=== PATIENT | male | born 1995 | race Caucasian/White ===

== ENCOUNTER 2021-01-01 21:55 | Emergency (ER) | payer OTHER, SELFPAY ==
[2021-01-01 21:55] VITALS: BP 161/71; PULSE 84; RESP 15; TEMP 37; O2SAT 98; BMI 25.1
--- NOTE | 2021-01-01 22:11 | ED.GENADULT ---
HPI - General Adult <Jamie Perez DO - Last Filed: 01/03/21 02:27> General Chief complaint: Psychiatric Symptoms Stated complaint: suicidal ideation Time Seen by Provider: 01/01/21 21:57 Source: patient Mode of arrival: Ambulatory Limitations: no limitations History of Present Illness HPI narrative: Patient is a 25-year-old active duty [facility] [place] male. He is a member of [employer]. 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 Does have a history of depression. Is followed by his registered medical transcriptionist and [place] One month ago he was started on an antidepressant but I did result in some side effects that were not acceptable to him so 2 weeks ago was started on Prozac. He has been taking every day since then. His depression stems from a relationship issue. 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 He remained to his and has been raising this child with her. He states that 1 week ago she left him and took the child back home to another state. This incident has caused a worsening of his depression. Today he had a sudden and overwhelming thought of killing himself. He had a plan of [place]jumping [place]. He contacted the active duty crisis line who advised him to come into the emergency department for evaluation. He did arrive by private vehicle. He denies any drug or alcohol use. Has never been admitted to the hospital before secondary to psychiatric issues. Related Data Allergies Allergy/AdvReac Type Severity Reaction Status Date / Time No Known Drug Allergies Allergy Verified 01/01/21 22:41 Review of Systems <Jamie Perez DO - Last Filed: 01/03/21 02:27> Constitutional Constitutional: Denies headache(s) ENT Ears, Nose, Mouth, and Throat: Denies headache(s) Cardiovascular Cardiovascular: Denies chest pain and Denies dyspnea Respiratory Respiratory: Denies dyspnea Gastrointestinal Gastrointestinal: Denies abdominal pain Neurologic Neurologic: Denies headache(s) Psychiatric Psychiatric: Reports depression and Reports suicidal ideation Hematologic/Lymphatic On Anticoagulants: No Patient History <Jamie Perez DO - Last Filed: 01/03/21 02:27> Medical History Depression Social History (Reviewed 01/02/21 @ 03:09 by RUDY Silvestre Smoking Status: Never smoker Exam <DO Gume Silvestre Last Filed: 01/03/21 02:27> Initial Vital Signs Initial Vital Signs: Vital Signs Temperature 98.6 F 01/01/21 21:55 Pulse Rate 84 01/01/21 21:55 Respiratory Rate 15 01/01/21 21:55 Blood Pressure 161/71 H 01/01/21 21:55 Pulse Oximetry 98 01/01/21 21:55 Const General: cooperative, comfortable and well developed Limitations: mental status not altered HENNJ Head: normal to inspection and normocephalic Resp Effort & Inspection: normal respiratory effort Cardio Rate: regular rate GI Inspection: non-distended Skin Lesions: no lesions Rashes: no rashes Neuro General: patient alert and patient awake Cognition: normal cognition Speech: speech normal Extrem General: capillary refill normal Psych Appearance: grossly normal and well kempt <DO Gume Castillo Last Filed: 01/03/21 19:07> Initial Vital Signs Initial Vital Signs: Vital Signs Temperature 98.6 F 01/01/21 21:55 Pulse Rate 84 01/01/21 21:55 Respiratory Rate 15 01/01/21 21:55 Blood Pressure 161/71 H 01/01/21 21:55 Pulse Oximetry 98 01/01/21 21:55 Scores <DO Gume Silvestre Filed: 01/03/21 02:27> GCS Ora coma scale eye opening: Spontaneous Kamlesh coma scale verbal response: Orientated Kamlesh coma scale motor response: Obey commands Kamlesh coma scale total score: 15 Course <DO Gume Silvestre Filed: 01/03/21 02:27> Orders Ordered: ED Orders 01/03/21 12:22 EKG-12 Lead Stat 01/03/21 12:27 Magnesium Stat Discontinued Medications Fluoxetine HCl (Fluoxetine 20 Mg Capsule) 40 mg PO DAILY [facility] Last Admin: 01/03/21 09:49 Dose: 40 mg Documented by: Admin: 01/02/21 08:20 Dose: 40 mg Documented by: CHAD Vital Signs Vital signs: Vital Signs - 8 hr 01/03/21 12:44 Pulse Rate 64 Blood Pressure 120/79 Pulse Oximetry 97 <DO Gume Castillo Last Filed: 01/03/21 19:07> Course Course Narrative: Patient received in sign-out from other provider at the end of their shift. I have performed an independent history and physical and have no significant additional findings. INSTITUTE SCIENTIST has seen patient, [facility] has openings tomorrow patient has been in a good mood today, he is doing well, a bit upset that there is no bed at [facility]. INSTITUTE SCIENTIST has done significant work and has found an available bed at [facility] Orders Ordered: ED Orders 01/03/21 12:22 EKG-12 Lead Stat 01/03/21 12:27 Magnesium Stat Discontinued Medications Fluoxetine HCl (Fluoxetine 20 Mg Capsule) 40 mg PO DAILY [facility] Last Admin: 01/03/21 09:49 Dose: 40 mg Documented by: Admin: 01/02/21 08:20 Dose: 40 mg Documented by: CHAD Vital Signs Vital signs: Vital Signs - 8 hr 01/03/21 12:44 Pulse Rate 64 Blood Pressure 120/79 Pulse Oximetry 97 Medical Decision Making <Jamie Perez DO - Last Filed: 01/03/21 02:27> Lab Data Lab results reviewed: Yes I reviewed the patient's lab results. Result diagrams: 01/01/21 22:25 01/01/21 22:25 Labs: Lab Results 01/01/21 01/01/21 01/01/21 Range/Units 22:25 22:25 22:25 WBC 8.5 (4.5-11.0) X10^3/uL RBC 4.63 (4.5-5.9) X10^6/uL Hgb 14.0 (13.5-17.5) g/dL Hct 41.1 (41-53) % MCV 88.8 (80-100) fL MCH 30.2 (26-34) PG MCHC 34.0 (30-36) % RDW 13.0 (11.6-14.8) % Plt Count 217 (150-400) X10^3/uL Neut % (Auto) 50.2 (50-75) % Lymph % (Auto) 36.4 (25-40) % [place] % (Auto) 7.4 (3-14) % Eos % (Auto) 4.9 H (2-4) % Baso % (Auto) 1.1 (0-2) % Neut # (Auto) 4300 (5279-8413) /uL Lymph # (Auto) 3100 (5873-6518) /uL [place] # (Auto) 600 (0-900) /uL Eos # (Auto) 400 (0-450) /uL Baso # (Auto) 100 (0-100) /uL Sodium 139 (137-145) mmol/L Potassium 3.6 (3.4-5.1) mmol/L Chloride 105 (98-107) mmol/L Carbon Dioxide 27 (22-32) mmol/L BUN 19 (9-20) mg/dL Creatinine 1.00 (0.66-1.25) mg/dL Estimated GFR > 60.0 (>60) mL/min BUN/Creatinine Ratio 19.0 (6-22) Glucose 113 H (70-100) mg/dL Calcium 9.5 (8.4-10.2) mg/dL Magnesium (1.6-2.3) mg/dL Total Bilirubin 0.2 (0.2-1.3) mg/dL AST 24 (17-59) IU/L ALT 18 (<50) IU/L Alkaline Phosphatase 69 (38-126) U/L Total Protein 7.4 (6.3-8.2) g/dL Albumin 4.4 (3.5-5.0) g/dL Globulin 3.0 (1.7-4.1) g/dL Albumin/Globulin Ratio 1.5 (1.0-2.8) TSH 1.89 (0.47-4.68) uIU/mL Salicylates (<20) mg/dL U Opiates 300ng/mL cut (Negative) Ur Oxycodone Screen (Negative) Urine Methadone Screen (Negative) Acetaminophen < 10 L (10-30) ug/mL Ur Barbiturates Screen (Negative) U Tricyclic Antidepress (Negative) Ur Phencyclidine Scrn (Negative) Ur Amphetamines Screen (Negative) U Methamphetamines Scrn (Negative) Ur MDMA Scrn (Ecstasy) (Negative) U Benzodiazepines Scrn (Negative) Urine Cocaine Screen (Negative) U Marijuana (THC) Screen (Negative) Ethyl Alcohol ( - 10) mg/dL SARS-CoV-2 (PCR) (Negative) 01/01/21 01/01/21 01/01/21 Range/Units 22:25 22:35 22:37 WBC (4.5-11.0) X10^3/uL RBC (4.5-5.9) X10^6/uL Hgb (13.5-17.5) g/dL Hct (41-53) % MCV (80-100) fL MCH (26-34) PG MCHC (30-36) % RDW (11.6-14.8) % Plt Count (150-400) X10^3/uL Neut % (Auto) (50-75) % Lymph % (Auto) (25-40) % [place] % (Auto) (3-14) % Eos % (Auto) (2-4) % Baso % (Auto) (0-2) % Neut # (Auto) (2788-4243) /uL Lymph # (Auto) (5960-5121) /uL [place] # (Auto) (0-900) /uL Eos # (Auto) (0-450) /uL Baso # (Auto) (0-100) /uL Sodium (137-145) mmol/L Potassium (3.4-5.1) mmol/L Chloride (98-107) mmol/L Carbon Dioxide (22-32) mmol/L BUN (9-20) mg/dL Creatinine (0.66-1.25) mg/dL Estimated GFR (>60) mL/min BUN/Creatinine Ratio (6-22) Glucose (70-100) mg/dL Calcium (8.4-10.2) mg/dL Magnesium (1.6-2.3) mg/dL Total Bilirubin (0.2-1.3) mg/dL AST (17-59) IU/L ALT (<50) IU/L Alkaline Phosphatase (38-126) U/L Total Protein (6.3-8.2) g/dL Albumin (3.5-5.0) g/dL Globulin (1.7-4.1) g/dL Albumin/Globulin Ratio (1.0-2.8) TSH (0.47-4.68) uIU/mL Salicylates < 1.0 (<20) mg/dL U Opiates 300ng/mL cut Negative (Negative) Ur Oxycodone Screen Negative (Negative) Urine Methadone Screen Negative (Negative) Acetaminophen (10-30) ug/mL Ur Barbiturates Screen Negative (Negative) U Tricyclic Antidepress Negative (Negative) Ur Phencyclidine Scrn Negative (Negative) Ur Amphetamines Screen Negative (Negative) U Methamphetamines Scrn Negative (Negative) Ur MDMA Scrn (Ecstasy) Negative (Negative) U Benzodiazepines Scrn Negative (Negative) Urine Cocaine Screen Negative (Negative) U Marijuana (THC) Screen Negative (Negative) Ethyl Alcohol < 10 ( - 10) mg/dL SARS-CoV-2 (PCR) Negative (Negative) 01/03/21 Range/Units 12:27 WBC (4.5-11.0) X10^3/uL RBC (4.5-5.9) X10^6/uL Hgb (13.5-17.5) g/dL Hct (41-53) % MCV (80-100) fL MCH (26-34) PG MCHC (30-36) % RDW (11.6-14.8) % Plt Count (150-400) X10^3/uL Neut % (Auto) (50-75) % Lymph % (Auto) (25-40) % [place] % (Auto) (3-14) % Eos % (Auto) (2-4) % Baso % (Auto) (0-2) % Neut # (Auto) (9869-7993) /uL Lymph # (Auto) (8420-7605) /uL [place] # (Auto) (0-900) /uL Eos # (Auto) (0-450) /uL Baso # (Auto) (0-100) /uL Sodium (137-145) mmol/L Potassium (3.4-5.1) mmol/L Chloride (98-107) mmol/L Carbon Dioxide (22-32) mmol/L BUN (9-20) mg/dL Creatinine (0.66-1.25) mg/dL Estimated GFR (>60) mL/min BUN/Creatinine Ratio (6-22) Glucose (70-100) mg/dL Calcium (8.4-10.2) mg/dL Magnesium 2.0 (1.6-2.3) mg/dL Total Bilirubin (0.2-1.3) mg/dL AST (17-59) IU/L ALT (<50) IU/L Alkaline Phosphatase (38-126) U/L Total Protein (6.3-8.2) g/dL Albumin (3.5-5.0) g/dL Globulin (1.7-4.1) g/dL Albumin/Globulin Ratio (1.0-2.8) TSH (0.47-4.68) uIU/mL Salicylates (<20) mg/dL U Opiates 300ng/mL cut (Negative) Ur Oxycodone Screen (Negative) Urine Methadone Screen (Negative) Acetaminophen (10-30) ug/mL Ur Barbiturates Screen (Negative) U Tricyclic Antidepress (Negative) Ur Phencyclidine Scrn (Negative) Ur Amphetamines Screen (Negative) U Methamphetamines Scrn (Negative) Ur MDMA Scrn (Ecstasy) (Negative) U Benzodiazepines Scrn (Negative) Urine Cocaine Screen (Negative) U Marijuana (THC) Screen (Negative) Ethyl Alcohol ( - 10) mg/dL SARS-CoV-2 (PCR) (Negative) Urine Dip Bedside Urine Glucose Negative Bedside Urine Bilirubin - Negative Bedside Urine Ketone - Negative Urine Specific Wall 1.030 Bedside Urine Occult Blood - Negative Bedside Urine pH 6.0 Bedside Urine Protein - Negative Bedside Urine Urobilinogen - Negative Bedside Urine Nitrite - Negative Bedside Urine Leukocytes - Negative Esterase Point of care testing: Urine Dip Bedside Urine Glucose Negative Bedside Urine Bilirubin - Negative Bedside Urine Ketone - Negative Urine Specific Wall 1.030 Bedside Urine Occult Blood - Negative Bedside Urine pH 6.0 Bedside Urine Protein - Negative Bedside Urine Urobilinogen - Negative Bedside Urine Nitrite - Negative Bedside Urine Leukocytes - Negative Esterase MDM Narrative Medical decision making narrative: Patient has been battling depression for the past several weeks/months and did have a recent change in his medication for this. One week ago things worsened within his left him. He had a sudden overwhelming suicidal ideation earlier today with a fairly specific plan [place]. He contacted the crisis line on his own and did come to the emergency department on his own. He has no signs of intoxication. He is here voluntarily. Has been calm and cooperative during his stay. During his time here in the emergency department he stated that he is feeling somewhat better and does not have the overwhelming desire to kill himself however the fact that the thoughts came so suddenly earlier today and he had intense desire to kill himself made him very concerned and scared about being home alone. 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 Patient opted to stay in the emergency department this evening. He is medically cleared and we will re-engage in the morning to attempt to find placement. Patient is agreeable with this plan. Care turned over to day provider to follow up and disposition. 01/03/21: Assumed care of patient and reviewed notes from the past day. Patient continues to remain stable and medically cleared. Will re-attempt placement today at [facility]. <Bhaskar Wen, DO - Last Filed: 01/03/21 19:07> Lab Data Labs: Lab Results 01/01/21 01/01/21 01/01/21 Range/Units 22:25 22:25 22:25 WBC 8.5 (4.5-11.0) X10^3/uL RBC 4.63 (4.5-5.9) X10^6/uL Hgb 14.0 (13.5-17.5) g/dL Hct 41.1 (41-53) % MCV 88.8 (80-100) fL MCH 30.2 (26-34) PG MCHC 34.0 (30-36) % RDW 13.0 (11.6-14.8) % Plt Count 217 (150-400) X10^3/uL Neut % (Auto) 50.2 (50-75) % Lymph % (Auto) 36.4 (25-40) % [place] % (Auto) 7.4 (3-14) % Eos % (Auto) 4.9 H (2-4) % Baso % (Auto) 1.1 (0-2) % Neut # (Auto) 4300 (4359-8931) /uL Lymph # (Auto) 3100 (3260-0105) /uL [place] # (Auto) 600 (0-900) /uL Eos # (Auto) 400 (0-450) /uL Baso # (Auto) 100 (0-100) /uL Sodium 139 (137-145) mmol/L Potassium 3.6 (3.4-5.1) mmol/L Chloride 105 (98-107) mmol/L Carbon Dioxide 27 (22-32) mmol/L BUN 19 (9-20) mg/dL Creatinine 1.00 (0.66-1.25) mg/dL Estimated GFR > 60.0 (>60) mL/min BUN/Creatinine Ratio 19.0 (6-22) Glucose 113 H (70-100) mg/dL Calcium 9.5 (8.4-10.2) mg/dL Magnesium (1.6-2.3) mg/dL Total Bilirubin 0.2 (0.2-1.3) mg/dL AST 24 (17-59) IU/L ALT 18 (<50) IU/L Alkaline Phosphatase 69 (38-126) U/L Total Protein 7.4 (6.3-8.2) g/dL Albumin 4.4 (3.5-5.0) g/dL Globulin 3.0 (1.7-4.1) g/dL Albumin/Globulin Ratio 1.5 (1.0-2.8) TSH 1.89 (0.47-4.68) uIU/mL Salicylates (<20) mg/dL U Opiates 300ng/mL cut (Negative) Ur Oxycodone Screen (Negative) Urine Methadone Screen (Negative) Acetaminophen < 10 L (10-30) ug/mL Ur Barbiturates Screen (Negative) U Tricyclic Antidepress (Negative) Ur Phencyclidine Scrn (Negative) Ur Amphetamines Screen (Negative) U Methamphetamines Scrn (Negative) Ur MDMA Scrn (Ecstasy) (Negative) U Benzodiazepines Scrn (Negative) Urine Cocaine Screen (Negative) U Marijuana (THC) Screen (Negative) Ethyl Alcohol ( - 10) mg/dL SARS-CoV-2 (PCR) (Negative) 01/01/21 01/01/21 01/01/21 Range/Units 22:25 22:35 22:37 WBC (4.5-11.0) X10^3/uL RBC (4.5-5.9) X10^6/uL Hgb (13.5-17.5) g/dL Hct (41-53) % MCV (80-100) fL MCH (26-34) PG MCHC (30-36) % RDW (11.6-14.8) % Plt Count (150-400) X10^3/uL Neut % (Auto) (50-75) % Lymph % (Auto) (25-40) % [place] % (Auto) (3-14) % Eos % (Auto) (2-4) % Baso % (Auto) (0-2) % Neut # (Auto) (8304-2652) /uL Lymph # (Auto) (3745-0182) /uL [place] # (Auto) (0-900) /uL Eos # (Auto) (0-450) /uL Baso # (Auto) (0-100) /uL Sodium (137-145) mmol/L Potassium (3.4-5.1) mmol/L Chloride (98-107) mmol/L Carbon Dioxide (22-32) mmol/L BUN (9-20) mg/dL Creatinine (0.66-1.25) mg/dL Estimated GFR (>60) mL/min BUN/Creatinine Ratio (6-22) Glucose (70-100) mg/dL Calcium (8.4-10.2) mg/dL Magnesium (1.6-2.3) mg/dL Total Bilirubin (0.2-1.3) mg/dL AST (17-59) IU/L ALT (<50) IU/L Alkaline Phosphatase (38-126) U/L Total Protein (6.3-8.2) g/dL Albumin (3.5-5.0) g/dL Globulin (1.7-4.1) g/dL Albumin/Globulin Ratio (1.0-2.8) TSH (0.47-4.68) uIU/mL Salicylates < 1.0 (<20) mg/dL U Opiates 300ng/mL cut Negative (Negative) Ur Oxycodone Screen Negative (Negative) Urine Methadone Screen Negative (Negative) Acetaminophen (10-30) ug/mL Ur Barbiturates Screen Negative (Negative) U Tricyclic Antidepress Negative (Negative) Ur Phencyclidine Scrn Negative (Negative) Ur Amphetamines Screen Negative (Negative) U Methamphetamines Scrn Negative (Negative) Ur MDMA Scrn (Ecstasy) Negative (Negative) U Benzodiazepines Scrn Negative (Negative) Urine Cocaine Screen Negative (Negative) U Marijuana (THC) Screen Negative (Negative) Ethyl Alcohol < 10 ( - 10) mg/dL SARS-CoV-2 (PCR) Negative (Negative) 01/03/21 Range/Units 12:27 WBC (4.5-11.0) X10^3/uL RBC (4.5-5.9) X10^6/uL Hgb (13.5-17.5) g/dL Hct (41-53) % MCV (80-100) fL MCH (26-34) PG MCHC (30-36) % RDW (11.6-14.8) % Plt Count (150-400) X10^3/uL Neut % (Auto) (50-75) % Lymph % (Auto) (25-40) % [place] % (Auto) (3-14) % Eos % (Auto) (2-4) % Baso % (Auto) (0-2) % Neut # (Auto) (5086-4574) /uL Lymph # (Auto) (5445-3803) /uL [place] # (Auto) (0-900) /uL Eos # (Auto) (0-450) /uL Baso # (Auto) (0-100) /uL Sodium (137-145) mmol/L Potassium (3.4-5.1) mmol/L Chloride (98-107) mmol/L Carbon Dioxide (22-32) mmol/L BUN (9-20) mg/dL Creatinine (0.66-1.25) mg/dL Estimated GFR (>60) mL/min BUN/Creatinine Ratio (6-22) Glucose (70-100) mg/dL Calcium (8.4-10.2) mg/dL Magnesium 2.0 (1.6-2.3) mg/dL Total Bilirubin (0.2-1.3) mg/dL AST (17-59) IU/L ALT (<50) IU/L Alkaline Phosphatase (38-126) U/L Total Protein (6.3-8.2) g/dL Albumin (3.5-5.0) g/dL Globulin (1.7-4.1) g/dL Albumin/Globulin Ratio (1.0-2.8) TSH (0.47-4.68) uIU/mL Salicylates (<20) mg/dL U Opiates 300ng/mL cut (Negative) Ur Oxycodone Screen (Negative) Urine Methadone Screen (Negative) Acetaminophen (10-30) ug/mL Ur Barbiturates Screen (Negative) U Tricyclic Antidepress (Negative) Ur Phencyclidine Scrn (Negative) Ur Amphetamines Screen (Negative) U Methamphetamines Scrn (Negative) Ur MDMA Scrn (Ecstasy) (Negative) U Benzodiazepines Scrn (Negative) Urine Cocaine Screen (Negative) U Marijuana (THC) Screen (Negative) Ethyl Alcohol ( - 10) mg/dL SARS-CoV-2 (PCR) (Negative) Urine Dip Bedside Urine Glucose Negative Bedside Urine Bilirubin - Negative Bedside Urine Ketone - Negative Urine Specific Wall 1.030 Bedside Urine Occult Blood - Negative Bedside Urine pH 6.0 Bedside Urine Protein - Negative Bedside Urine Urobilinogen - Negative Bedside Urine Nitrite - Negative Bedside Urine Leukocytes - Negative Esterase Point of care testing: Urine Dip Bedside Urine Glucose Negative Bedside Urine Bilirubin - Negative Bedside Urine Ketone - Negative Urine Specific Wall 1.030 Bedside Urine Occult Blood - Negative Bedside Urine pH 6.0 Bedside Urine Protein - Negative Bedside Urine Urobilinogen - Negative Bedside Urine Nitrite - Negative Bedside Urine Leukocytes - Negative Esterase Discharge Plan Departure Patient Disposition: Xfer Psychiatric Hosp Clinical Impression: Suicidal ideation, Depression
[2021-01-01 22:35] LABS: Add Manual Diff / Slide Review NO; Basophils Absolute Auto 100 /uL (0-100); Basophils Percent Auto 1.1 % (0-2); Eosinophils Absolute Auto 400 /uL (0-450); Eosinophils Percent Auto 4.9 % (2-4); Hematocrit 41.1 % (41-53); Lymphocytes Absolute Auto 3100 /uL (1100-4500); Lymphocytes Percent Auto 36.4 % (25-40); Mean Corpuscular Hemoglobin 30.2 PG (26-34); Mean Corpuscular Volume 88.8 fL (80-100); Monocytes Absolute Auto 600 /uL (0-900); Monocytes Percent Auto 7.4 % (3-14); Neutrophils Absolute Auto 4300 /uL (1500-7000); Neutrophils Percent Auto 50.2 % (50-75); Platelet Count 217 X10^3/uL (150-400); Red Blood Cell Count 4.63 X10^6/uL (4.5-5.9); White Blood Cell Count 8.5 X10^3/uL (4.5-11.0)
[2021-01-01 22:44] LABS: Ethanol (ETOH) < 10 mg/dL; Salicylate < 1.0 mg/dL (<20)
[2021-01-01 22:45] LABS: Acetaminophen < 10 ug/mL (10-30); Alanine Aminotransferase 18 IU/L (<50); Albumin 4.4 g/dL (3.5-5.0); Albumin Globulin Ratio 1.5 (1.0-2.8); Alkaline Phosphatase 69 U/L (38-126); Aspartate Aminotransferase 24 IU/L (17-59); Bilirubin Total 0.2 mg/dL (0.2-1.3); Blood Urea Nitrogen 19 mg/dL (9-20); Calcium 9.5 mg/dL (8.4-10.2); Carbon Dioxide 27 mmol/L (22-32); Chloride 105 mmol/L (98-107); Estimated Glomerular Filt Rate > 60.0 mL/min (>60); Glucose 113 mg/dL (70-100); HEMOLYSIS < 15 (0-50); Potassium 3.6 mmol/L (3.4-5.1); Sodium 139 mmol/L (137-145); Total Protein 7.4 g/dL (6.3-8.2)
[2021-01-01 23:04] LABS: UR Morphine/Opiate cutoff 300 Negative (Negative); Ur Creatinine Normal (Normal); Ur Specific Gravity Normal (Normal); Urine Amphetamines Negative (Negative); Urine Barbiturates Negative (Negative); Urine Benzodiazepines Negative (Negative); Urine Cocaine Negative (Negative); Urine MDMA Negative (Negative); Urine Methadone Negative (Negative); Urine Methamphetamines Negative (Negative); Urine Oxycodone Negative (Negative); Urine Phencyclidine Negative (Negative); Urine Tetrahydrocannabinol Negative (Negative); Urine Tricyclic Antidepressant Negative (Negative); Urine pH Normal (Normal)
[2021-01-01 23:18] LABS: COVID19 -Nasal RAPID Negative (Negative)
[2021-01-01 23:30] LABS: Thyroid Stimulating Hormone 1.89 uIU/mL (0.47-4.68)
[2021-01-02 06:28] VITALS: BP 128/64; PULSE 53; RESP 16; O2SAT 98
[2021-01-02] MEDS: FLUoxetine 20 MG CAPSULE 40 MG PO (08:20)
[2021-01-02 12:00] VITALS: BP 136/76; PULSE 65; RESP 16; TEMP 36.6; O2SAT 96
--- NOTE | 2021-01-02 12:46 | PC.NURSE ---
Pt's lizette Parmar here to see pt. Pt okayed visit
--- NOTE | 2021-01-02 13:32 | CM.SWNOTE ---
CDA TEACHER Assessment CDA TEACHER - Negative Assembler Assessment Time Spent with Patient Start date 01/02/21 Visit Start Time 12:05 End date 01/02/21 Visit End Time 12:30 Total time Care Management spent on 25 patient visit-in minutes Mental Health Screening Include Onset, Duration, Intensity Presenting Problem Patient presents to this ED with thoughts of suicidal Ideation. Patient calls crisis line and was advised to come to ED. Precipitating Event(s) Patient states that his cheated on him, had a baby that is not his and and baby left him last week. Patient states he has been alone in his thoughts this week. Patient Strengths Patient shows insight. Current Behavioral Health Provider(s) Patient reports he sees Dr. Truong Facility, Provider, Ph. # [facility] [place]. (CDA TEACHER cannot find Dr. Magana but identifies Ph. # [phone] for [facility] clinic in [place]. Psych. Hx Mental Health and Chemical Patient states he has been Dependency struggling with depression and was previously prescribed Lexapro but had adverse affects and was prescribed 40mg of Prozac two weeks ago. Family Hx of Behavioral Abuse None reported. Psychiatric Hospitalizations (date(s)/ Patient denies any previous location) hospital stays. 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 Patient states his and baby left him this week and he currently lives alone. Patient states that his coworkers and friends are supportive. School/Work [employer] Concerns Legal Matters - Outstanding Issues None reported. Mental Status Orientation (Person/Place/Time) A/Ox4 Stated Mood better than last night Affect (Congruent with Mood?) Euthymic, full range, stable, congruent with mood. Thought Content - Specify/Describe Patient denies obsessions, Obsessions, Delusions, Hallucinations delusions and hallucinations Thought Processes (Suyegof-Fydjdmwr-Lztk Coherent/ logical Gklpulop-Smjkxzbg-Ygwfsctxud- Jxvlaxoulvztdy-Ybyvtrp-Whcnjvbyzlkf- Thought Blocking) Speech (Ebmfjt-Onby-Ishdbih-Rapid-Soft- Normal Loud-Pressured) Motor (Mppdmc-Xtgwwvpmb-Kxxi-Other) Normal, not formally assessed Insight (Sjxv-Ovue-Dhgu/Limited) Good Judgement (Pdcq-Qxvo-Lxqk/Limited) Good Impulse Control (Adequate-Impaired) Adequate during interview Memory (Suqgylttt-Msgjqk-Ltkdtj, Adequate during interview, not Impaired-Intact) formally assessed Concentration (Intact-Impaired) Adequate Attention (Intact-Impaired) Intact Behavior (Appropriate-Inappropriate) Appropriate Additional Comment Patient was open and communicative. Risk Assessment Suicidal Ideation (Plan) Yes Homicidal Ideation (Plan) No Comment Patient denies HI. Patient states all day yesterday he thought of going to [place] and jumping [place]. Patient states this is the first time he has had SI with ways and means plan. Patient states he calls Crisis Line and comes to this ED. Patient states it was scary to have those thoughts of killing self and jumping off bridge. Patient states he was ready to go last night in reference to ready to go jump off the bridge. Intervention Intervention CDA TEACHER meets with patient. Patient informs CDA TEACHER of his feelings of SI and events that led up to these thoughts. Patient states that he has been along stuck in my own thoughts for the last week. Patient states that he has had a rough marriage and he his when he was based in [facility] and spent the first year of marriage a part and reports his cheated on him and became . Patient states that he was unsure if the child was his and it was later determined he was not the biological father . Patient states that his left him last week and his depressive thoughts increased while he lives alone. Patient states he has been not in a great place mentally for a long time. 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 CDA TEACHER discusses [facility] and psychiatric inpatient. Patient indicates understanding and agreement and reports that ED provider Dr. Perez informed him about this hospital last evening. It is the opinion of this CDA TEACHER that patient will benefit from inpatient psychiatric hospitalization. CDA TEACHER discusses the above with ED provider Dr. Wen and he indicates understanding and agreement. Plan RA Plan Patient to transfer to [facility] for psychiatric inpatient when they have beds available on . MADAI Bucio
--- NOTE | 2021-01-02 13:34 | CM.SWNOTE ---
PULLING MACHINE OPERATOR Note PULLING MACHINE OPERATOR calls [facility] (Ph. # [phone]). It is reported that hospital with have open beds for patient on Sunday01/03/21. PULLING MACHINE OPERATOR to fax clinicals regarding referral for voluntary inpatient later today. PULLING MACHINE OPERATOR informs the above to patient and he indicates agreement and understanding and wanting to wait for inpatient bed. plan: PULLING MACHINE OPERATOR to follow with faxing clinicals to [facility] for voluntary inpatient hospitalization MADAI Bucio
[2021-01-02 18:00] VITALS: BP 138/79; PULSE 72; RESP 16; TEMP 36.5; O2SAT 98
[2021-01-03 07:16] VITALS: BP 138/68; PULSE 55; RESP 16; O2SAT 96
[2021-01-03] MEDS: FLUoxetine 20 MG CAPSULE 40 MG PO (09:49)
--- NOTE | 2021-01-03 10:58 | PC.NURSE ---
pt denies wanting to act on suicidal thoughts from 2 days ago.
--- NOTE | 2021-01-03 12:26 | CM.SWNOTE ---
Addendum entered by Sharita Novoa 01/03/21 14:32: Patient provides BAKERY TEAM LEADER with verbal consent to contact psychiatrist Dr. Magana to inform them of patient present in this ED and transfer to inpatient, patient indicates understanding. BAKERY TEAM LEADER leaves with psychiatrist Dr. Magana at [facility] (Ph. # [phone]) requesting return call. MADAI Bucio Addendum entered by Sharita Novoa 01/03/21 14:02: BAKERY TEAM LEADER speaks with Charge nurse Li at [facility], BAKERY TEAM LEADER faxes clinicals for [facility] review. BAKERY TEAM LEADER receives call from Christiano at [facility], and accepts patient for inpatient psychiatric hospitalization with eta of 1600. BAKERY TEAM LEADER calls [facility] and provides update that bed is no longer needed. BAKERY TEAM LEADER informs RAMY Diop to schedule EMS transport. Plan: patient to xfer to [facility] for inpatient psychiatric hospitalization. MADAI Bucio Original Note: BAKERY TEAM LEADER Note BAKERY TEAM LEADER arrives at 1200 and is informed by RNs that [facility] does not have opening today and it is unknown when hospital will have inpatient openings. BAKERY TEAM LEADER enters room and meets with patient and provides update. Patient states he is still seeking voluntary inpatient and indicates understanding and agreement that BAKERY TEAM LEADER is to call other hospitals for inpatient bed openings. BAKERY TEAM LEADER calls [facility], it is reported that they may have openings but could not review clinicals until this evening with an ETA of 2200 or tomorrow. BAKERY TEAM LEADER calls [facility] intake and leaves requesting return call regarding inpatient bed openings. BAKERY TEAM LEADER calls [facility] intake, it is reported that this hospital has beds avaialble today. Intake requests clinicals with EKG and magnesium levels. BAKERY TEAM LEADER informs charge nurse TAZ Mayorga requests these orders. BAKERY TEAM LEADER informs patient and he indicates agreement and understanding. Plan: xfer to inpatient for psychiatric hospitalization, pending opening at [facility]. MADAI Bucio
[2021-01-03 12:44] VITALS: BP 120/79; PULSE 64; O2SAT 97
--- NOTE | 2021-01-03 16:09 | PC.NURSE ---
pt belongings removed from cabinet and given to him.
== END 2021-01-03 15:50 ==
PROVIDERS: Emergency Medicine; Emergency Provider Emergency Medicine
DX: R45.851 Suicidal ideations (principal); F32.9 Major depressive disorder, single episode, unspecified; Z20.822 Contact with and (suspected) exposure to COVID-19
CPT/HCPCS: 36415; 80053; 80305; 80320; 80329; 81003; 83735; 84443; 85025; 87635; 93005; 93010; 99284; C9803; G0480

== ENCOUNTER 2021-07-30 11:01 | Emergency (ER) | payer OTHER, SELFPAY ==
[2021-07-30 11:16] VITALS: BP 142/90; PULSE 74; RESP 18; TEMP 37; O2SAT 96; BMI 25.5
[2021-07-30 11:46] LABS: Strep Grp A by PCR Rapid Negative (Negative)
[2021-07-30 11:56] LABS: COVID19 -Nasal RAPID Negative (Negative)
--- NOTE | 2021-07-30 12:04 | ED_ITS ---
HPI - URI/Sore Throat <EKATERINA Hurtado - Last Filed: 07/30/21 12:45> General Chief Complaint: Upper Respiratory Symptoms Stated Complaint: Sore/swollen throat x3days Time Seen by Provider: 07/30/21 11:58 Source: patient Mode of arrival: Ambulatory History of Present Illness HPI Narrative: 25 year old male presents to the emergency department for sore throat for the last 3 days that has been worsening. Patient denies any cough, denies any shortness of breath, fever, vomiting or diarrhea but does endorse having some nausea. Patient denies feeling like throat is closing, difficulty swallowing, he reports that it is painful to swallow. He denies any wheezing, shortness of breath, or feeling that throat is closing. He denies any mass in his mouth or throat, he denies any discharge or foul smell coming from his mother throat as well. MD Complaint: sore throat Relieving factors: NSAID Exacerbating factors: swallowing Description of mucous: clear Able to tolerate fluids by mouth: Yes Context: recent dental work (Denies) Associated symptoms: denies other symptoms Related Data Allergies Allergy/AdvReac Type Severity Reaction Status Date / Time No Known Drug Allergies Allergy Verified 01/01/21 22:41 Review of Systems <EKATERINA Hurtado - Last Filed: 07/30/21 12:45> Review of Systems Narrative: General: denies fever, chills, endorses left anterior cervical lymphadenopathy Head/Neck: denies headache, neck pain, endorses sore throat and tonsil swelling Eyes: denies visual changes, eye pain Cardio: denies chest pain, palpitations Respiratory: denies shortness of breath, cough GI: denies abdominal pain, nausea, vomiting, or diarrhea : denies dysuria, hematuria MSK: denies joint pain, muscle weakness Skin: denies rash, itching Neuro: denies numbness, tingling Patient History <EKATERINA Hurtado - Last Filed: 07/30/21 12:45> Medical History Depression Social History Smoking Status: Never smoker Smoking Status: Never smoker alcohol intake frequency: a few times a week Substance Use Type: does not use Exam <EKATERINA Hurtado - Last Filed: 07/30/21 12:45> Narrative Exam Narrative: Independently reviewed vitals signs and nursing notes. General: Awake, alert, nontoxic, no cardiorespiratory distress Head/Neck: Atraumatic, neck full range of motion Eyes: EOMI, conjunctiva normal Nose: nares patent, no rhinorrhea Mouth/Throat: moist mucus membranes, posterior pharynx erythematous with moderate edema, uvula midline, no oral lesions or masses, no tonsillar exudate Cardio: Regular rate and rhythm, no peripheral edema Respiratory: respirations unlabored without wheezing, stridor, or rales. No retractions. GI: Abdomen soft, nontender MSK: Moves all extremities, neurovascularly intact Skin: Normal capillary refill, no rash Neuro: Normal speech and cognition, normal gait Initial Vital Signs Initial Vital Signs: Vital Signs Temperature 98.6 F 07/30/21 11:16 Pulse Rate 74 07/30/21 11:16 Respiratory Rate 18 07/30/21 11:16 Blood Pressure 142/90 H 07/30/21 11:16 Pulse Oximetry 96 07/30/21 11:16 Course <EKATERINA Hurtado - Last Filed: 07/30/21 12:45> Orders Ordered: ED Orders 07/30/21 11:11 COVID19 -Nasal swab/Pre-Proc Stat Strep Grp A by PCR Rapid Stat Throat Culture Stat Discontinued Medications Dexamethasone (Dexamethasone 10 Mg/Ml Vial) 10 mg PO NOW ONE Stop: 07/30/21 12:00 Last Admin: 07/30/21 12:27 Dose: 10 mg Documented by: JESSE Ketorolac Tromethamine (Ketorolac 10 Mg Tablet) 10 mg PO NOW ONE Stop: 07/30/21 12:10 Last Admin: 07/30/21 12:27 Dose: 10 mg Documented by: JESSE Ondansetron HCl (Ondansetron 4 Mg Odt) 4 mg SL NOW ONE Stop: 07/30/21 12:08 Last Admin: 07/30/21 12:27 Dose: 4 mg Documented by: JESSE Vital Signs Vital signs: Vital Signs - 8 hr 07/30/21 11:16 07/30/21 12:51 Temperature 98.6 F Pulse Rate 74 92 H Respiratory Rate 18 Blood Pressure 142/90 H 120/78 Pulse Oximetry 96 96 MDM - URI/Sore Throat <Aziza Vanesa Larsonluma [employer] TE[employer]ER - Last Filed: 07/30/21 12:45> Lab Data Labs: Lab Results 07/30/21 07/30/21 Range/Units 11:11 11:11 SARS-CoV-2 (PCR) Negative (Negative) Group A Strep (PCR) Negative (Negative) [facility] Narrative Medical decision making narrative: 25-year-old male presents to the ED complaining of sore throat x3 days. His COVID antigen and strep a rapid test were negative. On exam he had moderate erythema his posterior pharynx, tonsils are 2+ bilaterally, uvula midline, without exudate. Throat culture was sent, patient was given 10 mg of Decadron, Zofran for nausea, and ketorolac p.o. for pain. Patient reports feeling better after observation, and understands to follow-up with his PCP or return to the emergency department he is any worsening of his swelling, pain, or if he has difficulty swallowing or breathing. Patient is appropriate and amenable to discharge home. Vital signs are stable on repeat examination is unremarkable. Patient has been informed of results. Patient has been given strict return to ER precautions for any new or worsening symptoms. Patient understands to follow up closely with outpatient providers as instructed. Patient understands plan and agrees to discharge home. All questions and concerns answered at this time. Discharge Plan Departure Patient Disposition: Home Clinical Impression: Pharyngitis Instructions: DI for Viral Pharyngitis Activity Restrictions/Additional Instructions: *You have been diagnosed with [pharyngitis and tonsillitis, most likely viral in nature. We did obtain a throat so we will days if this comes back for something that you may need antibiotics for. Otherwise I hope that you feel better soon, try some tea with honey, it can help with the throat pain. Please see not taking more ibuprofen today but Tylenol is okay. You may start taking ibuprofen tomorrow. Please take it with water and food. You, I think you feel better next hours if not way better by tonight. If you start to get worse or the swelling increases please return to the emergency department. Feel better soon *What to do: *Please continue to take your regular medications as directed. [ ] New medication prescriptions sent to your pharmacy: [ ] [ ] New medication written as a paper prescription [x ] No new medications given *Please follow up with your primary care provider in 2-3 days, call for an appointment. Let them know you were seen in the Emergency Department and that we ask that you be seen in follow up. We will electronically transmit a record of today's note if your PCP is in our system *If you do not have a primary care provider please contact the [facility] Resource line at [phone]. They will ask some questions about your medical history and help get you set up with a doctor in the community. *Return to Emergency Department if you should have any new, worsening or concerning symptoms, such as [fever greater than 101F, chills, worsening pain, persistent vomiting or other bothersome symptoms]
[2021-07-30] MEDS: KETOROLAC 10 MG TABLET PO (12:27)
[2021-07-30] MEDS: ONDANSETRON 4 MG ODT SL (12:27)
[2021-07-30] MEDS: DEXAMETHASONE 10 MG/ML VIAL PO (12:27)
[2021-07-30 12:51] VITALS: BP 120/78; PULSE 92; O2SAT 96
== END 2021-07-30 12:52 | disposition home or self-care (01) ==
PROVIDERS: Emergency Medicine; Emergency Provider Nurse Practitioner Critical Care Medicine
DX: J02.9 Acute pharyngitis, unspecified (principal); Z20.822 Contact with and (suspected) exposure to COVID-19
CPT/HCPCS: 87070; 87635; 87651; 99283; C9803; J1100

== ENCOUNTER 2021-11-23 18:24 | Emergency (ER) | payer OTHER, SELFPAY ==
[2021-11-23 18:28] VITALS: BP 145/74; PULSE 78; RESP 16; TEMP 36.6; O2SAT 97; BMI 26.4
--- NOTE | 2021-11-23 20:40 | ED_ITS ---
HPI - Extremity Injury (Lower) General Chief Complaint: Extremity Injury, Lower Stated Complaint: left leg pain, getting worse Time Seen by Provider: 11/23/21 20:40 Source: patient Mode of arrival: Ambulatory History of Present Illness HPI Narrative: The patient is in the [employer]. His job does not require significant heavy lifting. He developed left low back pain radiating to the left lateral/posterior thigh about 2 weeks ago. He has a burning sensation extending to the thigh. He has no numbness weakness in the left leg. He has no prior history of back injury or history of chronic back pain. He has taken Advil without significant relief. He has no pain with motion is back, but a burning pain in the left SI region. He has no abdominal pain. He has no bowel or bladder incontinence. He denies recent illness. He has had no fever. He has pain in the left leg, no numbness or weakness. Related Data Previous Rx's Medication Instructions Recorded prednisone 20 mg tablet 60 mg PO DAILY 5 Days tab 11/23/21 Allergies Allergy/AdvReac Type Severity Reaction Status Date / Time No Known Drug Allergies Allergy Verified 01/01/21 22:41 Review of Systems Review of Systems Narrative: See HPI Patient History Medical History (Updated 11/23/21 @ 20:54 by Ac Kuhn MD) Depression Surgical History (Updated 11/23/21 @ 20:51 by Ac Kuhn MD) No significant past surgical history Social History Smoking Status: Never smoker Smoking Status: Never smoker alcohol intake frequency: a few times a week Substance Use Type: does not use Exam Initial Vital Signs Initial Vital Signs: Vital Signs Temperature 97.8 F 11/23/21 18:28 Pulse Rate 78 11/23/21 18:28 Respiratory Rate 16 11/23/21 18:28 Blood Pressure 145/74 H 11/23/21 18:28 Pulse Oximetry 97 11/23/21 18:28 Const General: cooperative, healthy appearing, comfortable, well developed and well groomed [facility] Head: normocephalic and atraumatic GI Inspection: normal to inspection Palpation: soft and No tender Auscultation: normal bowel sounds Back/Spine/Pelvis Other: No palpable tenderness of the lumbar spine. Focal left SI tenderness. No palpable deformity. Skin General: no rashes or lesions noted Neuro General: patient alert, patient awake, patient oriented x3 and no focal motor deficits Extrem General: normal to inspection, full ROM, no pedal edema and no calf tenderness Other: Positive left straight leg raise. Psych Mental Status: mental status grossly normal Course Course Course Narrative: The patient has left sciatica. He is given Toradol and started on prednisone 60 mg p.o. He has Advil at home. A 5 day supply of prednisone will be prescribed. Vital Signs Vital signs: Vital Signs - 8 hr 11/23/21 18:28 Temperature 97.8 F Pulse Rate 78 Respiratory Rate 16 Blood Pressure 145/74 H Pulse Oximetry 97 Discharge Plan Departure Patient Disposition: Home Clinical Impression: Left sided sciatica Instructions: Sciatica Activity Restrictions/Additional Instructions: Advil 3 tablets every 6 hours for pain. Prednisone 60 mg daily for 5 days. Follow-up with your doctor as planned. I do recommend a physical therapy consult as soon as possible. Return here as needed. Prescriptions: New prednisone 20 mg tablet 60 mg PO DAILY 5 Days 0RF
[2021-11-23] MEDS: KETOROLAC 30 MG/ML VIAL IM (21:01)
[2021-11-23] MEDS: predniSONE 20 MG TABLET 60 MG PO (21:01)
== END 2021-11-23 21:39 | disposition home or self-care (01) ==
PROVIDERS: Emergency Provider Emergency Medicine
DX: M54.42 Lumbago with sciatica, left side (principal)
CPT/HCPCS: 96372; 99283; J1885

== ENCOUNTER 2021-12-05 16:26 | Emergency (ER) | payer OTHER, SELFPAY ==
[2021-12-05 16:28] VITALS: BP 146/76; PULSE 72; RESP 20; TEMP 36.2; O2SAT 99
--- NOTE | 2021-12-05 20:10 | ED_ITS ---
HPI - Back Pain/Injury <EKATERINA Hurtado - Last Filed: 12/05/21 20:22> General Chief Complaint: Back Pain/Injury Stated Complaint: SCIATICA LEFT LEG Time Seen by Provider: 12/05/21 20:06 Source: patient History of Present Illness HPI Narrative: 26-year-old male with history of low back pain from an unknown injury and sciatica down his left leg presents to the emergency department today for this same problem. He states he took steroids on 11/23/2021 after his emergency department visit for his low back pain, it helped a lot, he states he has physical therapy scheduled in 2 days for his low back pain, but he states that his sciatica has worsened over the last 2 days and is going all way down his left leg, he states it difficult to walk, complains of significant pain. Patient denies any weakness, sensation changes like persistent numbness or tingling, denies any footdrop or dragged on the ground, denies any incontinence. He denies any fever or illness. Related Data Previous Rx's Medication Instructions Recorded lidocaine 5 % topical patch 1 patch TOPICAL DAILY #15 ea 12/05/21 (Lidoderm) methocarbamol 500 mg tablet 500 mg PO TID PRN #20 tab 12/05/21 prednisone 50 mg tablet 50 mg PO DAILY #14 tab 12/05/21 Allergies Allergy/AdvReac Type Severity Reaction Status Date / Time No Known Drug Allergies Allergy Verified 01/01/21 22:41 Review of Systems <EKATERINA Hurtado - Last Filed: 12/05/21 20:22> Review of Systems Narrative: General: denies fever, chills, malaise, sweats, fatigue Head/Neck: denies headache, neck pain, dizziness Eyes: denies visual changes, eye pain Cardio: denies chest pain, palpitations, edema Respiratory: denies dyspnea, cough, orthopnea GI: denies abdominal pain, nausea, vomiting, or diarrhea : denies dysuria, hematuria, urinary retention, frequency or incontinence MSK: denies joint pain, muscle weakness, endorses low lumbar back pain with left-sided sciatica Skin: denies rash, itching, skin lesions or other Neuro: denies numbness, tingling Patient History <EKATERINA Hurtado - Last Filed: 12/05/21 20:22> Medical History Depression Surgical History No significant past surgical history Social History Smoking Status: Never smoker Smoking Status: Never smoker alcohol intake frequency: a few times a week Substance Use Type: does not use Exam <EKATERINA Hurtado - Last Filed: 12/05/21 20:22> Narrative Exam Narrative: Independently reviewed vitals signs and nursing notes. General: cooperative, comfortable, in no acute distress, well developed and well groomed Head: atraumatic, symmetrical facial expressions Neck: supple, atraumatic, without lymphadenopathy. Eyes: pupils equal round and reactive, EOMI, conjunctiva normal Nose: nares patent, no rhinorrhea Mouth/Throat: uvula midline, moist mucus membranes Cardiovascular: regular rate and rhythm, no peripheral edema, warm extremities Respiratory: normal effort, able to speak in complete sentences, no audible wheezing, stridor, or rales. No retractions or tachypnea. GI: abdomen soft, nontender to palpation, nondistended, no masses, no exquisite tenderness with exam, without guarding or rebound. MSK: moves all extremities, ambulatory w/steady gait, neurovascularly intact, no weakness, limping on the left leg due to pain with ambulation, full range of motion intact, strength equal bilaterally Skin: brisk capillary refill, no rash, no erythema Neuro: normal speech and cognition, A&O x3, normal tone Psych: mental status is grossly normal, congruent mood, normal affect, pleasant and cooperative Initial Vital Signs Initial Vital Signs: Vital Signs Temperature 97.2 F L 12/05/21 16:28 Pulse Rate 72 12/05/21 16:28 Respiratory Rate 20 12/05/21 16:28 Blood Pressure 146/76 H 12/05/21 16:28 Pulse Oximetry 99 12/05/21 16:28 <Bhaskar Wen DO - Last Filed: 12/06/21 03:14> Initial Vital Signs Initial Vital Signs: Vital Signs Temperature 97.2 F L 12/05/21 16:28 Pulse Rate 72 12/05/21 16:28 Respiratory Rate 20 12/05/21 16:28 Blood Pressure 146/76 H 12/05/21 16:28 Pulse Oximetry 99 12/05/21 16:28 Course <EKATERINA Hurtado - Last Filed: 12/05/21 20:22> Orders Ordered: Discontinued Medications Acetaminophen (Acetaminophen 325 Mg Tablet) 975 mg PO NOW ONE Stop: 12/05/21 20:10 Last Admin: 12/05/21 20:16 Dose: 975 mg Documented by: WILFREDO Ketorolac Tromethamine (Ketorolac 30 Mg/Ml Vial) 15 mg IM NOW ONE Stop: 12/05/21 20:10 Last Admin: 12/05/21 20:18 Dose: 15 mg Documented by: WILFREDO Lidocaine (Lidocaine Patch 1 Each Adh..Patch) 1 each TOP NOW ONE Stop: 12/05/21 20:10 Last Admin: 12/05/21 20:18 Dose: 1 each Documented by: WILFREDO Methocarbamol (Methocarbamol 500 Mg Tablet) 500 mg PO NOW ONE Stop: 12/05/21 20:14 Last Admin: 12/05/21 20:16 Dose: 500 mg Documented by: WILFREDO Prednisone (Prednisone 20 Mg Tablet) 60 mg PO NOW ONE Stop: 12/05/21 20:10 Last Admin: 12/05/21 20:18 Dose: 60 mg Documented by: WILFREDO Vital Signs Vital signs: Vital Signs - 8 hr 12/05/21 16:28 Temperature 97.2 F L Pulse Rate 72 Respiratory Rate 20 Blood Pressure 146/76 H Pulse Oximetry 99 <Bhaskar Wen DO - Last Filed: 12/06/21 03:14> Orders Ordered: Discontinued Medications Acetaminophen (Acetaminophen 325 Mg Tablet) 975 mg PO NOW ONE Stop: 12/05/21 20:10 Last Admin: 12/05/21 20:16 Dose: 975 mg Documented by: WILFREDO Ketorolac Tromethamine (Ketorolac 30 Mg/Ml Vial) 15 mg IM NOW ONE Stop: 12/05/21 20:10 Last Admin: 12/05/21 20:18 Dose: 15 mg Documented by: WILFREDO Lidocaine (Lidocaine Patch 1 Each Adh..Patch) 1 each TOP NOW ONE Stop: 04/18/22 20:10 Last Admin: 12/05/21 20:18 Dose: 1 each Documented by: WILFREDO Methocarbamol (Methocarbamol 500 Mg Tablet) 500 mg PO NOW ONE Stop: 12/05/21 20:14 Last Admin: 12/05/21 20:16 Dose: 500 mg Documented by: WILFREDO Prednisone (Prednisone 20 Mg Tablet) 60 mg PO NOW ONE Stop: 12/05/21 20:10 Last Admin: 12/05/21 20:18 Dose: 60 mg Documented by: WILFREDO Vital Signs Vital signs: Vital Signs - 8 hr 12/05/21 16:28 Temperature 97.2 F L Pulse Rate 72 Respiratory Rate 20 Blood Pressure 146/76 H Pulse Oximetry 99 [facility] - Back Pain/Injury <EKATERINA Hurtado - Last Filed: 12/05/21 20:22> [facility] Narrative Medical decision making narrative: This is a 26-year-old male presents to the emergency department for low back pain with sciatica, states this is an exacerbation and he was seen for this on 11/23/2021 as well. He is requesting prednisone today because he states he had this before and help so much. He has physical therapy in 2 days, his following up with his primary care provider, states that his pain was so bad today he could barely walk, this is why he came to the ER. Patient does not have any weakness, incontinence, fever, spinal tenderness to palpation. He has muscle spasms in the lumbar spine, complains of shooting pains down his left leg with movement. Patient is following up with his primary care doctor next week, and has physical therapy in 2 days. Recommend this is going to be the best treatment for him. Gave him prescription lidocaine patches, muscle relaxers, prednisone for 5 days, and encouraged heat, Tylenol, and ibuprofen as needed. Etiologies of back pain considered including; Epidural abscess, cauda equina, mass occupying lesion, lumbar fracture, intra-abdominal pathology chronic neuropathic pain and other considered. Patient is appropriate and amenable to discharge home. Vital signs are stable on repeat examination is unremarkable. Patient has been informed of results. Patient has been given strict return to ER precautions for any new or worsening symptoms. Patient understands to follow up closely with outpatient providers as instructed. Patient understands plan and agrees to discharge home. All questions and concerns answered at this time. Discharge Plan Departure Patient Disposition: Home Clinical Impression: Left sided sciatica Instructions: DI for Back Pain With Sciatica Activity Restrictions/Additional Instructions: *You have been diagnosed with back pain with sciatica. Please go to PT on Sunday as scheduled, this is going to be the deal which helps make you better. Please use heat, rest, gentle activity, and anything that PT tells you to do, do it. Please follow-up with your primary doc about your back pain, steroid injections are helpful in the future if you need this, it is better to fix yourself with PT than anything else. Tylenol, ibuprofen as needed for pain, take your medicines with food especially the prednisone. Thank you for trusting us with your care, I hope you feel better soon. *What to do: *Please continue to take your regular medications as directed. [x ] New medication prescriptions sent to your pharmacy: [ [facility]] [ ] New medication written as a paper prescription [ ] No new medications given *Please follow up with your primary care provider in 2-3 days, call for an appointment. Let them know you were seen in the Emergency Department and that we asked that you be seen for follow-up. We will electronically transmit a record of today's note if your PCP is in our system *If you do not have a primary care provider please contact [phone] to establish care with one of the [facility] primary care providers. *Return to Emergency Department if you should have any new, worsening or concerning symptoms, such as [fever greater than 101F, chills, worsening pain, persistent vomiting or other bothersome symptoms] Prescriptions: New methocarbamol 500 mg tablet 500 mg PO TID PRN (Reason: muscle spasm) Qty: 20 0RF prednisone 50 mg tablet 50 mg PO DAILY Qty: 14 0RF lidocaine [Lidoderm] 5 % adhesive patch,medicated 1 patch topical DAILY Qty: 15 0RF Rx Instructions: leave on most painful area for up to 12 hrs <Bhaskar Wen DO - Last Filed: 12/06/21 03:14> [facility] ED Attending Raulature Attestation: I was immediately available in the department for consultation. This documentation has been reviewed and I agree with assessment and plan. Supervised by Bahskar Wen DO
[2021-12-05] MEDS: methocarbamoL 500 MG TABLET PO (20:16)
[2021-12-05] MEDS: ACETAMINOPHEN 325 MG TABLET 975 MG PO (20:16)
[2021-12-05] MEDS: LIDOCAINE PATCH 1 EACH ADH..PATCH TOP (20:18)
[2021-12-05] MEDS: predniSONE 20 MG TABLET 60 MG PO (20:18)
[2021-12-05] MEDS: KETOROLAC 30 MG/ML VIAL 15 MG IM (20:18)
== END 2021-12-05 20:37 | disposition home or self-care (01) ==
PROVIDERS: Emergency Provider Nurse Practitioner Critical Care Medicine
DX: M54.42 Lumbago with sciatica, left side (principal)
CPT/HCPCS: 96372; 99283; J1885

== ENCOUNTER → 2022-11-28 15:28 | Outpatient (CLI) | payer OTHER, SELFPAY ==
--- NOTE | 2022-11-28 | DI.MRI.S_ITS ---
PROCEDURE: MR LUMBAR SPINE WO CON INDICATIONS: Sciatica, unspecified side TECHNIQUE: Noncontrast sagittal T1 spin echo and T2 fast echo, sagittal STIR, and T2 fast spin echo through the lumbar spine. In cases with scoliosis, additional coronal T2 fast spin echo may be performed. COMPARISON: None. FINDINGS: Image quality: Excellent. Alignment and Curvature: There is normal bony alignment. Bone Marrow: Marrow is of normal overall signal. No acute vertebral body compression fractures. Spinal Cord: Conus medullaris terminates at the L1 level. Visualized cord demonstrates normal signal and size. Paraspinous Soft Tissues: No paravertebral masses. T12-L1: Normal appearance. L1-L2: Normal appearance. L2-L3: Normal appearance. L3-L4: Normal appearance. L4-L5: Normal appearance. L5-S1: Moderate disc desiccation and height loss. Broad-based disc bulge. There is a prominent posterior focal high-intensity zone. No canal stenosis. No neural foraminal narrowing. IMPRESSION: 1. L5-S1 posterior annular fibrosis tear. 2. No canal stenosis or foraminal narrowing of the lumbar spine. Dictated by: Krystle Vizcarra M.D. on 11/28/2022 at 16:57 Approved by: Krystle Vizcarra M.D. on 11/28/2022 at 16:58
== END ==
PROVIDERS: Referring Provider Internal Medicine; Visit Provider Internal Medicine
DX: M51.17 Intervertebral disc disorders with radiculopathy, lumbosacral region (principal)
CPT/HCPCS: 72148